=== PATIENT | female | born 2000 | race Caucasian/White ===

== ENCOUNTER 2020-06-19 02:12 | Emergency (ER) | payer BC ==
[~2020-06-19] VITALS: Ht 177.8 cm; Wt 63.5 kg
[2020-06-19] MEDS ORDERED: KETOROLAC 30 MG/ML VIAL IM ONE (02:35)
--- NOTE | 2020-06-19 02:40 | NUR ---
PATIENT PRESENTS TO ED WITH UTERUS AND GROIN PAIN . PT STATES TAKING PLAN B MONDAY AROUND 4PM DUE TO UNPROTECTED SEX ON MONDAY NIGHT. LOWER ABDOMINAL WAS TENDER AND PAINFUL UPON PALPATION. DENIES N/V/D; SKIN IS PINK/WARM/DRY; AAOX4 WITH EVEN AND STEADY GAIT; LUNGS CLEAR BL; HR EVEN AND REGULAR; PT DENIES ANY FEVER, CP, SOB, OR COUGH AT THIS TIME; PATIENT STATES PAIN OF 9/10 AT THIS TIME; VSS; PATIENT POSITIONED FOR COMFORT; HOB ELEVATED; BEDRAILS UP X2; BED DOWN. ER MD MADE AWARE OF PT STATUS. PMH: N/A ALLERGIES: NKA
--- NOTE | 2020-06-19 02:54 | NUR ---
PT TAKEN TO BED 11
[2020-06-19 03:22] LABS: APPEARANCE,URINE CLEAR (CLEAR); BILIRUBIN,URINE NEGATIVE (NEGATIVE); BLOOD, URINE NEGATIVE (NEGATIVE); COLOR,URINE YELLOW (YELLOW); LEUKOCYTE ESTERASE ,URINE NEGATIVE (NEGATIVE); NITRITE, URINE NEGATIVE (NEGATIVE); PH,URINE 5.5 (5.0-9.0); UGLUCOSE NEGATIVE (NEGATIVE)
[2020-06-19] MEDS ORDERED: NAPR-54 PO (03:28)
[2020-06-19] MEDS ORDERED: MAGN1.7529 PO (03:28)
[2020-06-19 03:31] LABS: BARBITURATE, URINE NEGATIVE ng/ml (NEG <=200); BENZODIAZEPINE, URINE NEGATIVE ng/mL (NEG <=200); CANNABINOID, URINE NEGATIVE ng/mL (NEG <=50); COCAINE, URINE NEGATIVE ng/mL (NEG <=300); OPIATE, URINE NEGATIVE ng/mL (NEG <=2000); PHENCYCLIDINE SCREEN,URINE NEGATIVE ng/mL (NEG <=25)
--- NOTE | 2020-06-19 03:40 | NUR ---
PT GIVEN NON-SLIP SOCKS
--- NOTE | 2020-06-19 03:41 | NUR ---
PT AMBULATED TO THE BATHROOM FOR URINE COLLECTION
--- NOTE | 2020-06-19 03:55 | NUR ---
Patient discharged with v/s stable. Written and verbal after care instructions given and explained. Patient alert, oriented and verbalized understanding of instructions. Ambulatory with steady gait. All questions addressed prior to discharge. ID band removed. Patient advised to follow up with PMD. Rx of NAPROSYN AND MAGNESIUM CITRATE given. Patient educated on indication of medication including possible reaction and side effects. Opportunity to ask questions provided and answered.
== END 2020-06-19 03:55 | disposition home or self-care (01) ==
LOC: MED 02:12
DX: R10.30 Lower abdominal pain, unspecified (principal)
CPT/HCPCS: 80305; 81003; 96372; 99283; J1885